=== PATIENT | male | born 1955 | race Caucasian/White ===

== ENCOUNTER → 2020-02-03 | Outpatient (CLI) | payer OTHER ==
--- NOTE | 2020-02-03 15:33 | US ---
EXAMINATION TYPE: US carotid duplex BILAT DATE OF EXAM: 02/03/2020 COMPARISON: NONE CLINICAL HISTORY: R55 Syncope. EXAM MEASUREMENTS: RIGHT: Peak Systolic Velocity (PSV) cm/sec ----- Right CCA: 161 ----- Right ICA: 138 ----- Right ECA: 166 ICA/CCA ratio: 0.9 RIGHT: End Diastole cm/sec ----- Right CCA: 21.5 ----- Right ICA: 29.9 ----- Right ECA: 6.9 LEFT: Peak Systolic Velocity (PSV) cm/sec ----- Left CCA: 170 ----- Left ICA: 120 ----- Left ECA: 168 ICA/CCA ratio: 0.7 LEFT: End Diastole cm/sec ----- Left CCA: 16.9 ----- Left ICA: 33.7 ----- Left ECA: 0.0 VERTEBRALS (direction of flow): Right Vertebral: Antegrade Left Vertebral: Retrograde Rhythm: Normal Mild amount of plaque visualized, elevated velocities visualized bilateral CCA, bilateral bulb, mid I CA, bilateral ECA IMPRESSION: Mild amount of plaque visualized, elevated velocities visualized bilateral CCA, bilateral bulb, mid I CA, bilateral ECA Criteria for Assigning % of Stenosis / Diameter reduction (Estimation based on the indirect measurements of the internal carotid artery velocities (ICA PSV). 1. Normal (no stenosis)=ICA PSV < 125 cm/s: ratio < 2.0: ICA EDV<40 cm/s. 2. Less than 50% stenosis=ICA PSV < 125 cm/s: ratio < 2.0: ICA EDV<40 cm/s. 3. 50 to 69% stenosis=ICA PSV of 125 to 230 cm/s: ration 2.0 ? 4.0: ICA EDV 40-100 cm/s. 4. Greater than 70% stenosis to near occlusion= ICA PSV > 230 cm/s: ratio > 4.0: ICA EDV > 100 cm/s. 5. Near occlusion= ICA PSV velocities may be low or undetectable: variable ratio and ICA EDV. 6. Total occlusion=unable to detect flow.
== END | disposition home or self-care (01) ==
LOC: RADUSWWP 14:56
PROVIDERS: ATTEND Family Medicine
DX: I65.23 Occlusion and stenosis of bilateral carotid arteries (principal)
CPT/HCPCS: 93880

== ENCOUNTER → 2024-07-19 | Outpatient (CLI) | payer MEDICARE, OTHER ==
--- NOTE | 2024-07-19 12:21 | XR ---
Left shoulder. HISTORY: Chronic pain COMPARISON: None TECHNIQUE: 3 views left shoulder were obtained. There is mild osteoarthritis of the AC joint. Glenohumeral joint is intact. There is no fracture or f ocal intraosseous abnormality. There are no soft tissue calcifications. IMPRESSION: Mild osteoarthritis of the AC joint with no other significant abnormality seen. [facility], Workstation: [email or web address], 07/19/2024 12:18 PM
--- NOTE | 2024-07-19 12:23 | XR ---
Right femur HISTORY: Chronic pain COMPARISON: None. TECHNIQUE: 4 views of the right femur were obtained. FINDINGS: There is an ill-defined partially sclerotic 3.7 cm lesion in the distal right femoral metaphysis. The re is a 1.4 cm sclerotic density in the right sacrum. Correlate for possible metastatic disease. Bone scan might be indicated for further evaluation. There is no right femoral fracture. The is no significant degenerative change of the right hip joint. There is marked osteoarthritis of the knee. IMPRESSION: 1. No acute abnormality of the right femur. 2. Sclerotic densities within the distal right femur and within the right sacrum. Correlate for possi ble metastatic disease. Bone scan may be indicated. 3. Marked osteoarthritis of the knee. [facility], , 07/19/2024 12:21 PM
--- NOTE | 2024-07-19 12:49 | XR ---
Lumbar spine HISTORY: Chronic back pain COMPARISON: None. TECHNIQUE: 6 views of the lumbar spine were obtained. FINDINGS: The lumbar vertebral segments are normal in height. There is a slight retrolisthesis of L4 on L5 and of L5 on S1. There is moderate disc space narrowing and spondylosis at the L3-4, L4-5 and L5-S1 levels indicating moderate degenerative disc disease. There is mild facet arthropathy at the L4-5 and L5-S1 levels. There is no spondylolysis. Visualized sacrum and SI joints normal. IMPRESSION: Moderate degenerative disease in lower lumbar spine as described above. [facility], , 07/19/2024 12:47 PM
--- NOTE | 2024-07-19 12:52 | XR ---
Right knee. HISTORY: Chronic pain. COMPARISON: None. TECHNIQUE: 3 views right knee were obtained. FINDINGS: There are postsurgical changes for internal fixation of a proximal right tibial fracture. There is marked narrowing and hypertrophic spurring of the medial compartment and patellofemoral comp artments consistent with marked osteoarthritis. There is mild to moderate narrowing and hypertrophic spurring of the lateral compartment There is an ill-defined 3.7 cm partially sclerotic density in the distal right femoral metaphysis. Th ere is no cortical destruction or periosteal reaction. Findings could represent a benign enchondroma however other etiologies such as neoplastic etiology is not excluded. CT might be useful for further evaluation. No joint effusion. IMPRESSION: 1. 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 2. Distal right femoral metaphyseal lesion as described above. Further workup may be warranted. 3. Postoperative changes. [facility], , 07/19/2024 12:50 PM
== END | disposition home or self-care (01) ==
LOC: RADXRMAIN 10:37
PROVIDERS: ATTEND Family Medicine
DX: M19.012 Primary osteoarthritis, left shoulder (principal); M17.11 Unilateral primary osteoarthritis, right knee; M47.816 Spondylosis without myelopathy or radiculopathy, lumbar region; M51.369 Other intervertebral disc degeneration, lumbar region without mention of lumbar back pain or lower extremity pain; G89.29 Other chronic pain; Z98.890 Other specified postprocedural states
CPT/HCPCS: 72110

== ENCOUNTER → 2024-08-20 | Outpatient (CLI) | payer MEDICARE, OTHER ==
--- NOTE | 2024-08-20 12:23 | NM ---
INDICATION: Patient age:Male; 68 years old; Reason for study: R93.7 abnormal bone xray; [facility]. COMPARISON: Right knee radiograph 07/19/2024, right femur radiograph 07/19/2024, lumbosacral spine radi ograph 07/19/2024. TECHNIQUE: Intravenous administration of 25.3 mCi of Technetium 99m-hydroxydiphosphonate followed by multiple scintigraphic images of the appendicular and axial skeleton. FINDINGS: Abnormal focal uptake identified within the right hemisacrum corresponding to previously seen sclerot ic lesion. Additional focal uptake identified within the upper right hemisacrum. There is some mild u ptake demonstrated within the distal right femur at region of previously seen lesion. No other suspic ious focal regions of uptake. There is increased uptake within the bilateral knees consistent with degenerative changes. No other p hotopenic areas or areas of increased activity are identified. Physiologic radiotracer activity is demonstrated in the kidneys and bladder. IMPRESSION: Abnormal focal uptake identified within the right hemisacrum corresponding to previously seen sclerot ic lesion on radiograph. Additional focal lesion identified within the upper right hemisacrum. There is also mild uptake identified within the distal right femur at site of previously seen lesion. This raises possibility of metastasis versus other etiologies. Further workup is recommended. [facility], , 08/20/2024 12:21 PM
== END | disposition home or self-care (01) ==
LOC: RADNMMAIN 07:55
PROVIDERS: ATTEND Family Medicine
DX: R93.7 Abnormal findings on diagnostic imaging of other parts of musculoskeletal system (principal)
CPT/HCPCS: 78306; A9503

== ENCOUNTER → 2024-08-23 | Outpatient (CLI) | payer MEDICARE, OTHER ==
[2024-08-23 15:45] LABS: African American GFR (CKD) >90 (>60 ml/min/1.73 sqM); Blood Urea Nitrogen 16 mg/dL (9-20); Non-African American GFR(CKD) >90 (>60 ml/min/1.73 sqM)
--- NOTE | 2024-08-23 17:48 | CT ---
EXAMINATION TYPE: CT ChestAbdPelvis w con DATE OF EXAM: 08/23/2024 5:31 PM COMPARISON: 08/20/2024 bone scan CLINICAL INDICATION: Male, 68 years old with history of Z72.0 TOBACCO USE R937. ABNORMAL BONE XRAY; P HH, ABNORMAL XRAY Technique: CT ChestAbdPelvis w con; Multiple axial images were obtained. Two-dimensional coronal and sagittal reconstructions were obtained. Contrast used:100ML mL of Isovue 300 with IV Contrast, (None if empty) Oral contrast used: with Oral Contrast CT DLP: 598 mGycm, Automated exposure control for dose reduction was used. Findings: CHEST: LUNGS/ PLEURA: No focal consolidation, pneumothorax or pleural effusion. Scattered small nodules incl uding 2 mm series 4 image 30 right lung, 3 mm series 4 image 37 in the right lower lobe, 3 mm series 4 image 55 left lower lobe. AIRWAY: Patent and unremarkable. HEART: Size within normal limits. MEDIASTINUM: No gross evidence of adenopathy. VASCULATURE: No aortic aneurysm. MUSCULOSKELETAL: No acute osseous abnormalities. SOFT TISSUES/LYMPH NODES: Unremarkable. LOWER NECK: No significant findings. ABDOMEN: ABDOMEN LIVER: Unremarkable GALLBLADDER AND BILE DUCTS: Unremarkable. PANCREAS: Unremarkable. SPLEEN: Unremarkable. ADRENAL GLANDS: Unremarkable. KIDNEYS AND URETERS: No evidence of hydronephrosis or renal calculus. The ureters are unremarkable. PELVIS BLADDER: Unremarkable REPRODUCTIVE: Prostate is enlarged in size measuring ?? 5.4 in transverse dimension. ABDOMEN & PELVIS STOMACH AND BOWEL: No evidence of bowel obstruction. Large amount of stool throughout colon. Scattere d colonic diverticula. PERITONEUM/RETROPERITONEUM: No evidence of pneumoperitoneum or free fluid. VASCULATURE: Moderate atherosclerotic calcifications are present throughout the abdominal aorta and i ts branches. No evidence of aortic aneurysm. MUSCULOSKELETAL: No acute osseous abnormalities. Moderate disc degeneration changes are present throu ghout the thoracolumbar spine. Uptake within the spine and sacrum 1 correlates with sclerotic focus w ithin the sacrum measuring 13 mm and 1116 Hounsfield units. Additional area of uptake on the bone sca n with in the right lower spine is thought to represent a transitional vertebrae degeneration with ri ght transverse process and sacrum. LYMPH NODES: No gross evidence for lymphadenopathy. SOFT TISSUE/ABDOMINAL WALL: Small fat-containing umbilical hernia. IMPRESSION: 1. Uptake projecting over the right sacrum posteriorly thought to correlate with bone island on nucl ear medicine scan. Additional area with in the right L-spine is thought to represent a transitional v ertebrae degeneration of the right transverse process and sacrum. 2. No evidence for mass or lymphadenopathy. 3. Prostatomegaly, correlate with serum PSA. 4. Clonic diverticulosis. 5. Large amount stool throughout the colon. 6. Scattered sub-6 mm pulmonary nodules.r [facility], , 08/23/2024 5:46 PM
== END | disposition home or self-care (01) ==
LOC: RADCTMAIN 14:51
PROVIDERS: ATTEND Family Medicine
DX: M53.3 Sacrococcygeal disorders, not elsewhere classified (principal); R91.8 Other nonspecific abnormal finding of lung field; K57.30 Diverticulosis of large intestine without perforation or abscess without bleeding; N40.0 Benign prostatic hyperplasia without lower urinary tract symptoms; R93.7 Abnormal findings on diagnostic imaging of other parts of musculoskeletal system; R19.5 Other fecal abnormalities; Z72.0 Tobacco use
CPT/HCPCS: 82565; 84520; 71260; 74177; 36415; Q9967

== ENCOUNTER → 2024-12-17 | Outpatient (CLI) | payer MEDICARE, OTHER ==
--- NOTE | 2024-12-17 10:17 | CT ---
EXAMINATION TYPE: CT knee RT wo con DATE OF EXAM: 12/17/2024 COMPARISON: Whole body bone scan August 20, 2024 CLINICAL INDICATION: Male, 69 years old with history of R93.89 ABNORMAL FINDINGS ON DX IMAGING OF OTH BODY; PHH, ABNORMAL FINDINGS DIAGNOSTIC IMAGING CT DLP: 538.80 mGycm Automated exposure control for dose reduction was used. FINDINGS: There is old fracture deformity in the region of the right knee with 2 remnant fixating screws in the proximal tibia. There is some ossific fusion of the fibular head to the lateral aspect of the proxim al tibia. There is moderate to severe tricompartment joint space loss and spurring. No significant mikhail int effusion. No popliteal cyst. Corresponding to recent bone scan there is a fairly well-defined intramedullary lesion of bone densit y with peripheral lucency measuring around 2.2 cm, this is likely product of prior surgery or bone gr afting procedure and should be correlated clinically. No adjacent soft tissue mass. IMPRESSION: ABOVE. [facility], , 12/17/2024 10:15 AM
--- NOTE | 2024-12-17 10:28 | CT ---
EXAMINATION TYPE: CT lumbar spine wo con DATE OF EXAM: 12/17/2024 9:57 AM COMPARISON: MRI lumbar spine 2009. Whole body bone scan August 20, 2024 CLINICAL INDICATION: Male, 69 years old with history of R93.89 ABNORMAL FINDINGS ON DX IMAGING OF OTH BODY; PHH, ABNORMAL FINDINGS DIAGNOSTIC IMAGING TECHNIQUE: Unenhanced CT of the lumbar spine was performed. Bone and soft tissue window settings are submitted as well as coronal and sagittal reconstructions. CT DLP: 500.3 mGycm Automated exposure control for dose reduction was used. FINDINGS: There are 5 lumbar-type vertebra. There is a scoliotic curvature in the lower lumbar spine. Vertebral body heights are maintained. There is slight grade 1 retrolisthesis L4 on L5 and L5 on S1. Vertebral body heights are maintained. There is moderate disc space narrowing and spurring along with vacuum d isc phenomenon L3-L4 through L5-S1 levels. Tiny nonspecific sclerotic focus left S2 level coronal oscar ge 41. No suspicious osseous lesion posterior right upper sacrum to correspond to bone scan abnormali ty. Posterior disc herniations efface the anterior thecal sac at L3-L4 and L4-L5 levels. Facet arthropath y at these levels is present. Moderate peripheral calcified plaque of the infrarenal abdominal aorta extends into iliac branch vess els. Normal appearing appendix is seen. IMPRESSION: As above. [facility], , 12/17/2024 10:25 AM
--- NOTE | 2024-12-17 15:18 | NM ---
EXAMINATION TYPE: NM bone scan whole body DATE OF EXAM: 12/17/2024 COMPARISON: Prior body bone scan August 20, 2024 CLINICAL INDICATION: Male, 69 years old with history of R93.89 ABNORMAL FINDINGS ON DX IMAGING OF OTH BODY; Delayed whole-body scanning was performed following the injection of 23.2 mCi Tc 99m MDP. Images acq uired 3.5 hours post injection. FINDINGS: Persistent increased uptake in bilateral knee joints more prominent on the right. Subtle focal uptake distal right femur is less prominent but still present. Subtle focal increased uptake posterior left upper sacral level redemonstrated. Similar mild multifocal uptake in the lower lumbar spine felt to reflect degenerative change. No new suspicious areas of abnormal radiotracer uptake on current study. IMPRESSION: As above. [facility], , 12/17/2024 3:15 PM
== END | disposition home or self-care (01) ==
LOC: RADCTMAIN 08:59
PROVIDERS: ATTEND Internal Medicine Hematology & Oncology
DX: R93.89 Abnormal findings on diagnostic imaging of other specified body structures (principal); M12.9 Arthropathy, unspecified
CPT/HCPCS: 72131; 73700; 78306; A9503

== ENCOUNTER → 2025-01-02 | Outpatient (CLI) | payer MEDICARE, OTHER ==
--- NOTE | 2025-01-02 10:03 | US ---
EXAMINATION TYPE: US Aorta Screening DATE OF EXAM: 01/02/2025 COMPARISON: NONE CLINICAL INDICATION: Male, 69 years old with history of Z720 LION USE; HTN. Smoker. TECHNIQUE: Multiple sonographic images of the abdominal aorta are obtained with grayscale and color D oppler imaging. FINDINGS: EXAM MEASUREMENTS: Abdominal Aorta: Proximal: 2.1 x 2.2 cm Mid: 2.0 x 1.8 cm Distal: 1.9 x 1.5 cm Bifurcation: Right Iliac: 0.6 x 0.8 cm Left Iliac: 0.8 x 0.8 cm DETENTION WORKER NOTES: No AAA visualized at time of scan IMPRESSION: No evidence for aortic aneurysm. No further workup recommended for negative screening aortic aneurysm ultrasound. [email or web address] [facility], Workstation: [email or web address], 01/02/2025 10:00 AM
== END | disposition home or self-care (01) ==
LOC: RADUSWWP 08:48
PROVIDERS: ATTEND Family Medicine
DX: Z13.6 Encounter for screening for cardiovascular disorders (principal); I10 Essential (primary) hypertension; Z72.0 Tobacco use
CPT/HCPCS: 76706